=== PATIENT | male | born 1990 | race Caucasian/White ===

== ENCOUNTER 2021-03-16 14:49 | Emergency (ER) | payer OTHER, MEDICAID, SELFPAY ==
[2021-03-16 15:28] VITALS: BP 119/60; PULSE 73; RESP 14; TEMP 36.8; O2SAT 100; BMI 18.1
--- NOTE | 2021-03-16 16:00 | DI.RAD.S_ITS ---
PROCEDURE: XR LUMBAR SPINE 2-3V INDICATIONS: back pain TECHNIQUE: 3 views of the lumbar spine were acquired. COMPARISON: None. FINDINGS: Bones: 5 [id number] vertebrae are present. There is minimal retrolisthesis of L4 on L5. No vertebral body compression fractures. No suspicious bony lesions. Soft tissues: Overlying bowel gas pattern is normal. No suspicious soft tissue calcifications. IMPRESSION: Minimal retrolisthesis of L4 on L5. Dictated by: Beth Huffman M.D. on 03/16/2021 at 16:14 Approved by: Beth Huffman M.D. on 03/16/2021 at 16:15
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
[2021-03-16] MEDS: KETOROLAC 30 MG/ML VIAL IM (18:35)
[2021-03-16] MEDS: diazePAM 5 MG TABLET 10 MG PO (18:35)
--- NOTE | 2021-03-16 18:53 | PC.NURSE ---
pt states he is unsure why his back started hurting does not remember any new injuries no bowel or bladder changes
== END 2021-03-16 18:55 | disposition home or self-care (01) ==
PROVIDERS: Emergency Provider Emergency Medicine
DX: G89.29 Other chronic pain (principal); M54.50 Low back pain, unspecified
CPT/HCPCS: 72100; 96372; 99283; J1885

== ENCOUNTER 2023-05-18 17:10 | Emergency (ER) | payer SELFPAY ==
[2023-05-18 17:20] VITALS: BP 131/65; PULSE 58; RESP 16; TEMP 36.4; O2SAT 100; BMI 20.3
--- NOTE | 2023-05-18 18:07 | ED.DENTAL ---
HPI - Dental/Oral <Yojana Ballesteros PA-C - Last Filed: 05/18/23 18:46> General Chief complaint: Dental/Oral Stated complaint: dental pain, no appts until August Time Seen by Provider: 05/18/23 17:53 Source: patient Mode of arrival: Ambulatory History of Present Illness HPI Narrative: Patient is a 33-year-old male who presents with dental pain. He reports the pain has been present for weeks but worse over the past 1 week. He was seen 5 days ago in the ER on [place] where they attempted to pack two cracked teeth, gave him amoxicillin and hydrocodone, and told him to find a dentist. Due to his insurance, the soonest he could get a dental appointment is August. He reports no fever or chills over the past 3 days. He endorses mild swelling and tenderness over the left jaw and left anterior neck but thinks this is getting better overall. He presents today due to severe pain. He has been taking Tylenol and ibuprofen every 4 hours as well as the hydrocodone and none of it seems to be helping. Related Data Previous Rx's Medication Instructions Recorded oxycodone 5 mg tablet 5 mg PO Q8H PRN pain #10 tabs 05/18/23 Allergies Allergy/AdvReac Type Severity Reaction Status Date / Time No Known Drug Allergies Allergy Verified 03/16/21 15:36 Review of Systems <Yojana Ballesteros PA-C - Last Filed: 05/18/23 18:46> Review of Systems ROS Unobtainable: All systems reviewed & are unremarkable except as noted in HPI and below Patient History <Yojana Ballesteros PA-C - Last Filed: 05/18/23 18:46> Social History Smoking Status: Current every day smoker Smoking Status: Current every day smoker Substance Use Type: marijuana Exam <Yojana Ballesteros PA-C - Last Filed: 05/18/23 18:46> Narrative Exam Narrative: GENERAL: 33 year old patient appears stated age. Well-developed patient, in mild distress. NEURO: AOx3. HEAD: Atraumatic. Normocephalic. EYES: Pupils equal round and reactive. Extraocular motions intact. No scleral icterus. No injection or drainage. ENT: Nose without bleeding or purulent drainage. Throat without erythema, tonsillar hypertrophy or exudate. Airway patent. Poor dentition with many missing or significantly eroded teeth. No visible abscess or bleeding. No halitosis. Tenderness to palpation over the left mandible left and neck. No palpable lymph nodes. No fluctuant masses. NECK: Trachea midline. RESPIRATORY: No increased work of breathing SKIN: No rash or erythema of visible areas Initial Vital Signs Initial Vital Signs: Vital Signs Temperature 97.5 F L 05/18/23 17:20 Pulse Rate 58 L 05/18/23 17:20 Respiratory Rate 16 05/18/23 17:20 Blood Pressure 131/65 05/18/23 17:20 Pulse Oximetry 100 05/18/23 17:20 Oxygen Delivery Method Room Air 05/18/23 17:20 <Monae Ragsdale MD - Last Filed: 05/19/23 08:01> Initial Vital Signs Initial Vital Signs: Vital Signs Temperature 97.5 F L 05/18/23 17:20 Pulse Rate 58 L 05/18/23 17:20 Respiratory Rate 16 05/18/23 17:20 Blood Pressure 131/65 05/18/23 17:20 Pulse Oximetry 100 05/18/23 17:20 Oxygen Delivery Method Room Air 05/18/23 17:20 Procedures <Yojana Ballesteros PA-C - Last Filed: 05/18/23 18:46> Nerve Block Nerve Block 1: Time of procedure: 18:20 Time out performed: Yes Local Anesthetic: bupivacaine 0.25% Amount of anesthesia used (mL): 3 Side: left Intraoral Nerve Block: superior alveolar (Posterior) Procedure Successful: Yes Patient Tolerated Procedure: Well Complications: pain with procedure Course <Yojana Ballesteros PA-C - Last Filed: 05/18/23 18:46> Orders Ordered: Discontinued Medications Bupivacaine HCl (Bupivacaine 0.25% (Pf) Vial) 30 ml INJ INTRA-OP ONE Stop: 05/18/23 18:05 Last Admin: 05/18/23 18:17 Dose: 30 ml Documented By: DOMINGO Vital Signs Vital signs: Vital Signs - 8 hr 05/18/23 17:20 Temperature 97.5 F L Pulse Rate 58 L Respiratory Rate 16 Blood Pressure 131/65 Pulse Oximetry 100 Oxygen Delivery Method Room Air <Monae Ragsdale MD - Last Filed: 05/19/23 08:01> Orders Ordered: Discontinued Medications Bupivacaine HCl (Bupivacaine 0.25% (Pf) Vial) 30 ml INJ INTRA-OP ONE Stop: 05/18/23 18:05 Last Admin: 05/18/23 18:17 Dose: 30 ml Documented By: DOMINGO Vital Signs Vital signs: Vital Signs - 8 hr 05/18/23 17:20 Temperature 97.5 F L Pulse Rate 58 L Respiratory Rate 16 Blood Pressure 131/65 Pulse Oximetry 100 Oxygen Delivery Method Room Air MDM - Dental/Oral <Yojana Ballesteros PA-C - Last Filed: 05/18/23 18:46> MDM Narrative Medical decision making narrative: Multiple etiologies for patient's symptoms considered including, but not limited to: Dental pain due to dental infection, exposed nerve/cracked tooth No evidence of active infection but patient does have very poor dentition multiple eroded and cracked teeth. Discussed limited options for management in the emergency room. Patient is agreeable to trying a nerve block. Discussed options for seeking dental care including [facility]. He has already called [facility]. Nerve block as above. Patient expresses decrease pain. Given prescription for oxycodone 5mg #10. Patient advised that we will not refill pain medications from the ER. Patient understands return precautions. Discharged. Patient's symptoms improved over duration of stay with above-stated therapies. Findings and discharge diagnosis discussed with patient/family followed by verbalization of understanding Return precautions discussed with patient/family whom verbalize understanding of diagnosis and plan Discharge Plan Departure Patient Disposition: Home Clinical Impression: Toothache Fracture of tooth Qualifiers: Encounter type: initial encounter Fracture type: open Qualified Code(s): S02.5XXB - Fracture of tooth (traumatic), initial encounter for open fracture Instructions: DI for Dental Pain Activity Restrictions/Additional Instructions: *You have been diagnosed with dental pain. We attempted do a nerve block that will hopefully give you some relief tonight. I have also prescribed several doses of stronger pain medication to be used for severe pain. I would continue to use ice or heat, whichever feels better, finish the antibiotics and continue taking ibuprofen. My best recommendation would be to call the dental school and see if you can get an appointment there. *What to do: *Please continue to take your regular medications as directed. [x ] New medication prescriptions sent to your pharmacy: [facility] [ ] New medication written as a paper prescription [ ] No new medications given *Please follow up with your primary care provider in 2-3 days, call for an appointment. Let them know you were seen in the Emergency Department and that we ask that you be seen in follow up. We will electronically transmit a record of today's note if your PCP is in our system *If you do not have a primary care provider please contact the [facility] Resource line at [phone]. They will ask some questions about your medical history and help get you set up with a doctor in the community. *Return to Emergency Department if you should have any new, worsening or concerning symptoms, such as [fever greater than 101 F, shaking chills, worsening pain, persistent vomiting or other concerning symptoms]. You have been prescribed a short course of narcotic medications. These are potentially dangerous and addictive medications that should be used carefully. While on these medications you cannot drive or operate heavy machinery. Do not drink alcohol or use other sedative medications while you are taking this medication. Additionally, you cannot sign legal documents or perform any duties such as this. 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 Please understand that we cannot provide further refills of narcotics or controlled substances through the ED and your pain management will need to be through your Primary Care Provider. You can use [facility] to search for discounted moe prices on prescription medicines. Prescriptions: New oxycodone 5 mg tablet 5 mg PO Q8H PRN (Reason: pain) Qty: 10 0RF Discontinued prednisone 20 mg tablet 40 mg PO DAILY Qty: 10 0RF meloxicam 7.5 mg tablet 7.5 mg PO BID PRN (Reason: pain) Qty: 14 0RF diazepam [Valium] 10 mg tablet 10 mg PO TID PRN (Reason: muscle spasm) Qty: 10 0RF Stand Alone Forms: Patient Portal/API ED Sign-out <Monae Ragsdale MD - Last Filed: 05/19/23 08:01> Cosign ED Attending Floriature Attestation: I was immediately available in the department for consultation throughout this patient's visit. Monae Ragsdale MD
[2023-05-18] MEDS: BUPIVACAINE 0.25% (PF) VIAL 30 ML INJ (18:17)
[2023-05-18 19:01] VITALS: BP 122/79; PULSE 53; RESP 18; O2SAT 99
== END 2023-05-18 18:55 | disposition home or self-care (01) ==
PROVIDERS: Emergency Provider Physician Assistant
DX: S02.5XXB Fracture of tooth (traumatic), initial encounter for open fracture (principal); X58.XXXA Exposure to other specified factors, initial encounter
CPT/HCPCS: 64450; 99282; 99283